=== PATIENT | female | born 1965 ===

== ENCOUNTER 2024-04-06 13:02 | Outpatient (OUT) | payer BC, SELFPAY ==
--- NOTE | 2024-04-06 14:28 | PM.CN ---
Consult Note: HPI Data of Consult Patient: new to practice Consult date: 04/06/24 Requesting Physician: Roberta Baird MD Primary Care Provider: ELISHA RIVERO Consult Narrative Reason for consult: midback, low back and leg pain Narrative: 59yof who presents for evaluation. longstanding history of mid and low back pain >20 years. currently follows with pain clinic in [place], moving to [place] now. has had procedures in the past with relief. no recent imaging available for review. continues in a series of provider directed home exercises >6 weeks, without benefit. has completed pt without relief. uses norco and gabapentin. denies adverse med side effects. cc:: CC: Roberta Baird MD Review of Systems ROS Status of ROS 10 or more systems reviewed and unremarkable except as noted in history and below Exam Narrative Exam Narrative: Psych-alert and oriented x 3. Attentive and appropriate, constitutionally normal, displays normal mood and affect per situation. There are no obvious deficits in memory, reasoning, or intellect.? Skin-no obvious rashes, bruising, erythema noted to the patient's area of pain.? Extremities- extremities are warm with minimal edema and palpable pulses. Lumbar-tenderness to palpation noted in the lumbar spine and paraspinal musculature. Pain is elicited with flexion, extension, and lateral rotation of the lumbar spine. Range of motion is diminished with these motions. Facet loading maneuvers are positive..? Strength-noted to be unremarkable with the exception of decreased strength rated at 4 out of 5 in bilateral quadriceps femoris, anterior tibialis. Sensory-no notable sensory deficits in the bilateral lower extremities to touch or pinprick in all dermatomal distributions with the exception to decreased sensation to the bilateral L4, 5 dermatomal distribution Coordination remains intact.? Gait remains non-antalgic. Assessment and Plan Assessment and Plan (1) Lumbar stenosis with neurogenic claudication: (2) Thoracic back pain: Qualifiers: Chronicity: chronic Back pain laterality: midline Qualified Code(s): M54.6 - Pain in thoracic spine; G89.29 - Other chronic pain Plan 59yof who presents for evaluation. failed conservative measures, as noted. given symptoms and exam findings, would like her to update lumbar mri without contrast, as well as xr of thoracic spine. she is in agreement. meds reviewed, pdmp reviewed, uds obtained. agreed to take over norco and gabapentin when she needs next refill. follow up after imaging.
== END 2024-04-06 13:03 | disposition home or self-care (01) ==
PROVIDERS: PCP Family Medicine; Visit Provider Anesthesiology
DX: M48.062 Spinal stenosis, lumbar region with neurogenic claudication (principal); M54.6 Pain in thoracic spine; G89.29 Other chronic pain
CPT/HCPCS: G0463